=== PATIENT | male | born 1975 | race Caucasian/White ===

== ENCOUNTER 2021-04-20 11:40 | Emergency (ER) | payer SELFPAY ==
[2021-04-20] MEDS ORDERED: HYDROcodone/Acetaminophen 5/325 mg Tablet ONE (12:29)
== END 2021-04-20 12:45 | disposition home or self-care (01) ==
LOC: ERS 11:40
DX: S92.401A Displaced unspecified fracture of right great toe, initial encounter for closed fracture (principal); W22.8XXA Striking against or struck by other objects, initial encounter